=== PATIENT | female | born 1980 | race Caucasian/White ===

== ENCOUNTER → 2017-10-15 09:22 | Outpatient (CLI) | payer MEDICAID ==
--- NOTE | ~2017-10-15 | ST ---
PATIENT:MOHAN RODRIGUEZ MEDICAL RECORD: [id number] SEX: F LOCATION:[facility] ORDER #: ADMISSION DATE: 10/15/17 AGE OF PATIENT: 37 REFERRING PHYSICIAN: INTERPRETING PHYSICIAN: GRICELDA FERNANDEZ MD DATE OF SERVICE: 10/15/2017 PROCEDURE: The patient underwent a sestamibi directed and Lexiscan nuclear Cardiolite stress test. PROCEDURE IN DETAIL: The patient was brought into the nuclear lab, placed in supine position on the nuclear table. The patient had Lexiscan injected via IV normal protocol. Heart rate went from 74-126. The patient experienced flushing and mild discomfort. There were no significant EKG changes. Otherwise, protocol was completed. The nuclear injection, rest and stress were done on the same day with 8.4 mCi of sestamibi injected at 0958 hours and 26.4 mCi of sestamibi injected at 1140 hours. The gated imaging revealed no evidence of wall motion abnormalities. Calculated ejection fraction of 62%. The SPECT imaging revealed an area of anterior reversible defect that was moderate to severe in intensity and moderate in distribution in the anterior wall. IMPRESSION: The patient has a highly positive area of ischemia in the anterior wall. RECOMMENDATIONS: Diagnostic angiography. TRANSINT:[id number] Voice Confirmation ID: [id number] DOCUMENT ID: [id number] GRICELDA FERNANDEZ MD at 1001 CC: [id number] DICTATION DATE: 10/16/17 0810 JOURNEYMAN MOLDER: 10/16/17 1259 DEP CLI 10/15/17 [place] [id number] [place] [address]
[~2017-10-15 09:22] MED LIST: BAYER CHEWABLE81 MG PO; DIOVAN160 MG PO; DOXYCYCLINE HY100 M2 PO; FISH OIL 1,2001 CAP PO; LIPITOR10 MG PO; OMEPRAZOLE20 M1 PO; PLAVIX75 MG PO; PROVERA10 MG PO; TENORMIN25 MG PO; VITAMIN B-121000 MCG PO; VITAMIN D5000 UNIT PO
[2017-10-19 10:48] VITALS: BMI 41.3
== END | disposition home or self-care (01) ==
LOC: D.NM 09:22
DX: R07.9 Chest pain, unspecified (principal)

== ENCOUNTER → 2017-10-19 09:00 | Outpatient (CLI) | payer MEDICAID ==
[~2017-10-19] VITALS: Ht 165.1 cm; Wt 112.7 kg
--- NOTE | ~2017-10-19 | OP ---
PATIENT NAME: MOHAN RODRIGUEZ MEDICAL RECORD: [id number] :76 LOCATION:D[facility] ADMISSION DATE: SURGEON: DIONICIO STEVENS MD DATE OF OPERATION: 10/19/2017 PROCEDURES: 1. Left heart catheterization. 2. Selective coronary angiography. 3. Left ventriculogram. INDICATION: Chest pain compatible with angina. PROCEDURE IN DETAIL: After informed consent was obtained and after detailed explanation of risks, benefits as well as alternative therapies, the patient elected to proceed with angiogram and heart catheterization. The right radial area was prepped and draped in normal sterile fashion. The right radial artery was cannulated via modified Seldinger technique with placement of 5-Malawian sheath. All catheters exchanged through this sheath. FINDINGS: Left ventriculogram was performed in standard 30-degree KUNZ view, reveals good cardiac wall motion throughout all segments. Overall ejection fraction estimated at 60%. SELECTIVE CORONARY ANGIOGRAPHY: Left main, left anterior descending, left circumflex, and right coronary artery are all smooth-walled vessels with no angiographic evidence of coronary artery disease. OVERALL IMPRESSION: 1. No angiographic evidence of coronary artery disease. 2. Normal left heart pressures. 3. Normal left ventricular systolic function. Chest pain is noncardiac in etiology. No further cardiac workup needs to be ascertained. TRANSINT:[id number] Voice Confirmation ID: [id number] DOCUMENT ID: [id number] DIONICIO STEVENS MD at 1202 CC: [id number] DICTATION DATE: 10/19/17 1222 CLAM DREDGER: 10/19/17 1228 DEP CLI 10/19/17 [place] [id number]
--- NOTE | ~2017-10-19 | HEMODYNAMI ---
PATIENT:MOHAN RODRIGUEZ MEDICAL RECORD: [id number] : 76 LOCATION:[facility] ADMISSION DATE: 10/19/17 Generatedon:10/19/201712:25 Patient name: MOHAN RODRIGUEZ Patient #: [id number] SSN: : 1980 Date of study: 10/19/2017 Page: Of Hemodynamic Procedure Report Patient Data Patient Demographics Procedure consent was obtained First Name: MOHAN Gender: Female Last Name: MICHAEL : 1980 Middle Initial: ARJUN Age: 37 year(s) Patient #: [id number] Race: Unknown Additional ID: [id number] Contact details [address]: [address] [place] [address] State: [place] City: [place] Zip code: [address] Past Medical History Allergies Allergen Reaction Date Comments Reported Other allergy 10/19/2017 ADHESIVE TAPE, NIACIN Admission Admission Data Admission Date: 10/19/2017 Admission Time: 9:00 Height (in.): 5.6 BSA: 0.37 (m2) Height (cm.): 14.22 BMI: 5559.99 (kg/m2) Weight (lbs.): 248 Weight (kg.): 112.49 Lab Results Lab Result Date: 10/19/2017 Lab Result Time: 0:00 Biochemistry Name Units Result Min Max BUN mg/dl 10 --(-*--)-- 7 18 Creatinine mg/dl 0.7 --(*---)-- 0.6 1.3 CBC Name Units Result Min Max Hemoglobin g/dl 13.7 --(*---)-- 13.5 17.5 Procedure Procedure Types Cath Procedure Diagnostic Procedure [facility] w/Coronaries Procedure Description Procedure Date Procedure Date: 10/19/2017 Procedure Start Time: 12:14 Procedure End Time: 12:24 Procedure Staff Name Function Paxton Beckham MD Performing Physician Irena Butcher RT Monitor Jerry Burns RN Nurse Dulce Billings RT Scrub Procedure Data Cath Procedure Fluoroscopy Diagnostic fluoroscopy Total fluoroscopy Time: 2.2 time: 2.2 min min Diagnostic fluoroscopy Total fluoroscopy dose: 340 dose: 340 mGy mGy Contrast Material Contrast Material Type Amount (ml) Isovue 300 48 Entry Location Entry Primary Successful Side Size Upsize Upsize Entry Closure [place]monte ccessful Closure Location (Fr) 1 (Fr) 2 (Fr) Remarks Device Remarks Radial Right 6 Fr Mechanical artery Short Compression Estimated blood loss: 5 ml Diagnostic catheters Device Type Used For End Catheter Placement DIAGNOSTIC [place] 110cm 5 Procedure Fr catheter ([id number]) Procedure Complications No complications Procedure Medications Medication Administration Route Dosage Oxygen NC 2 l/min Lidocaine 2% added to field 20 Heparin Flush Bag added to field 2 bags (1000units/500ml NS) 0.9% NaCl I.V. 100 ml/hr Radial Cocktail I.A. 1 syringe (Verapomil 2mg/Nitro 400mcg/Heparin 1500units) Versed I.V. 2 mg Fentanyl I.V. 100 mcg Versed I.V. 1 mg Fentanyl I.V. 50 mcg Hemodynamics Rest BSA: 0.37 (m2) HGB: 13.7 (g/dl) O2 Consumption: Estimated: 38.51 (ml/min) O2 Con sumption indexed: Estimated:104.08 (ml/min/m) Heart Rate: 75 (bpm) Snapshots Pre Cath Intra NCS Post Cath Vital Signs Time Heart Resp SPO2 etCO2 NIBP (mmHg) Rhythm Pain Sedation Rate (ipm) (%) (mmHg) Status Level (bpm) 12:08:03 74 18 100 38.1 147/99(120) NSR 0 (11) 10(A) , No pain 12:12:40 80 15 98 41.8 133/104(120) NSR 0 (11) 10(A) , No pain 12:17:14 99 19 94 42.6 136/83(111) NSR 0 (11) 9(A) , No pain 12:21:48 105 17 97 43.3 130/88(100) NSR 0 (11) 10(A) , No pain Medications Time Medication Route Dose Verified Delivered Reason Notes Effectiveness by by 11:56:10 Oxygen NC 2 l/min Paxton Edwards used for Bhavani Burns RN procedure 11:56:20 Lidocaine 2% added 20ml Paxton Mikeie for local to vial Tauth MD Burns RN anesthetic field 11:56:31 Heparin Flush added 2 bags Paxton Matta used for Bag to Bhavani Beckham MD procedure (1000units/500ml field NS) 11:56:39 0.9% NaCl I.V. 100 Paxton Edwards Per ml/hr Bhavani Burns RN physician 12:11:24 Versed I.V. 2 mg Paxton Edwards for sedation Bhavani Burns RN 12:11:30 Fentanyl I.V. 100 mcg Paxton Edwards for sedation Bhavani Burns RN 12:15:12 Radial Cocktail I.A. 1 Paxton Matta for (Verapomil syringe Bhavani Beckham MD vasodilation 2mg/Nitro 400mcg/Heparin 1500units) 12:18:34 Versed I.V. 1 mg Paxton Edwards for sedation Bhavani Burns RN 12:18:38 Fentanyl I.V. 50 mcg Paxton Edwards for sedation Bhavani Burns RN Procedure Log Time Note 11:45:39 Patient Height : 5.6 inches 11:45:46 Patient Weight : 248 lbs 11:45:50 Dulce Counts RT(R) sent for patient. Start room use. 11:45:51 Time tracking: Regular hours 11:45:59 Plan of Care:Hemodynamics will remain stable., Cardiac rhythm will remain stable., Comfort level will be maintained., Respiratory function will remain adequate., Patient/ family verbilizes understanding of procedure., Procedure tolerated without complication., Recovers from procedure without complications.. 11:46:00 Signed procedure consent form obtained from patient. 11:46:29 H&P Date Dictated: 09/25/2017 Within 30 days and on chart.. 11:47:08 Patient allergic to Other allergyADHESIVE TAPE, NIACIN 11:51:58 Patient received from Pre/Post Procedure Room to CCL 1 Alert and oriented. Tansferred to table in Supine position. 11:51:59 Warm blankets applied, and aubrey hugger turned on for patient comfort. 11:52:00 Correct patient and procedure confirmed by team. 11:52:00 ECG and BP/O2 sat monitors applied to patient. 11:52:01 Vital chart was started 11:52:54 Vital chart was stopped 11:56:10 Oxygen 2 l/min NC was administered by Jerry Burns RN; used for procedure; 11:56:20 Lidocaine 2% 20ml vial added to field was administered by Jerry Burns RN; for local anesthetic; 11:56:31 Heparin Flush Bag (1000units/500ml NS) 2 bags added to field was administered by Paxton Beckham MD; used for procedure; 11:56:39 0.9% NaCl 100 ml/hr I.V. was administered by Jerry Burns RN; Per physician; 12:07:15 Vital chart was started 12:07:43 Baseline sample Acquired. 12:07:48 Rhythm: sinus tachycardia 12:07:49 Full Disclosure recording started 12:07:50 Pre-procedure instructions explained to patient. 12:07:50 Pre-op teaching completed and patient verbalized understanding. 12:07:52 Family in patients room. 12:07:53 Patient NPO since Midnight. 12:07:55 Is the patient allergic to Iodine/contrast media? No. 12:07:57 Is patient on blood thinner?Yes 12:08:01 ACC The patient was administered the following blood thiners within the last 24 hours: ACCPlavix 12:08:03 Patient diabetic? No. 12:08:08 Patient not . Patient has had hysterectomy. 12:08:11 Previous problem with sedation/anesthesia? No ? 12:08:13 Snore? Yes 12:08:14 Sleep apnea? No 12:08:15 Deviated septum? No 12:08:16 Opens mouth fully? Yes 12:08:17 Sticks out tongue? Yes 12:08:19 Airway obstruction? No ? 12:08:24 Dentures? Yes PARTIALS 12:08:29 Pre procedure: right dorsailis pedis pulse 2+ Normal; easily identifiable; not easily obliterated 12:08:32 Patient pain scale 0/10 ?. 12:08:34 Modified Brice's test Ulnar < 7 seconds 12:08:45 IV patent on arrival in left hand with 0.9% NaCl at [facility]. 12:09:17 Lab Result : BUN 10 mg/dl 12:09:17 Lab Result : Creatinine 0.7 mg/dl 12:09:17 Lab Result : Hemoglobin 13.7 g/dl 12:09:20 Lab results completed and on chart. 12:09:23 Right Radial & Right Groin area was prepped with chlora-prep and draped in sterile fashion 12:09:24 Alarms reviewed by R. N. : Sharps counted by scrub and verified by R.N. --------ALL STOP TIME OUT------ Final Timeout: patient, procedure, and site verified with staff and physician. All members of the team are in agreement. 12:: Right Radial & Right Groin site verified by team. 12:: Physical assessment completed. ASA score P 2 - A patient with mild systemic disease as per Paxton Beckham MD. 12::33 Sedation plan: IV Moderate Sedation Medication:Versed, Fentanyl 12:: Use device set Radial Dx or PCI 12:10:23 ACIST Syringe (47533) opened to sterile field. 12:10:24 Tegaderm 4 x 4 (1626W) opened to sterile field. 12:10:25 ACIST Hand Control (82930) opened to sterile field. 12:10:25 ACIST Manifold (78224) opened to sterile field. 12:10:27 Bag Decanter (2002S) opened to sterile field. 12:10:30 Medline Cath Pack ([id number]) opened to sterile field. 12:10:31 SHEATH 6FR Slender ([id number]) opened to sterile field. 12:10:31 DIAGNOSTIC WIRE .035 260cm J wire (310568) opened to sterile field. 12:11:24 Versed 2 mg I.V. was administered by Jerry Burns RN; for sedation; 12:11:30 Fentanyl 100 mcg I.V. was administered by Jerry Burns RN; for sedation; 12:13:29 Procedure started. 12:13:31 Zero performed for pressure channel P1 12:13:43 Zero performed for pressure channel P1 12:13:53 Zero performed for pressure channel P1 12:14:07 Local anesthetic to right radial artery with Lidocaine 2% by Paxton Beckham MD.INITIAL ACCESS ONLY 12:14:42 A 6 Fr Short sheath was inserted into the Right Radial artery 12:14:53 A DIAGNOSTIC [place] 110cm 5 Fr catheter ([id number]) was advanced over the wire and used for Procedure. 12:15:12 Radial Cocktail (Verapomil 2mg/Nitro 400mcg/Heparin 1500units) 1 syringe I.A. was administered by Paxton Beckham MD; for vasodilation; 12:15:21 LV gram done using KUNZ 12:15:24 Injector settings: Ml/sec: 5, Volume: 15, 12:15:57 EF : 60 % 12:16:45 RCA angiography performed. 12:17:26 Catheter removed. 12:18:03 GUIDE 6FR XBLAD 3.5 catheter ([id number]) opened to sterile field. 12:18:15 6 Fr XBLAD 3.5 guide catheter was inserted over the wire 12:18:34 Versed 1 mg I.V. was administered by Jerry Burns RN; for sedation; 12:18:38 Fentanyl 50 mcg I.V. was administered by Jerry Burns RN; for sedation; 12:19:00 LCA angiography performed. 12:19:32 Guide catheter removed. 12:19:48 TR BAND Standard ([id number]) opened to sterile field. 12:20:03 Sheath removed intact; hemostasis achieved with Mechanical Compression to the Right Radial artery. 12:20:11 Procedure ended.(Physican Out) 12:20:32 Fluoroscopy time 02.20 minutes. 12:20:36 Fluoroscopy dose: 340 mGy 12:20:36 Flurop Dose total: 340 12:20:39 Contrast amount:Isovue 300 48ml. 12:20:41 TR band inflated with 11cc of air. 12:21:38 Post procedure: right dorsailis pedis pulse 2+ Normal; easily identifiable; not easily obliterated. 12:21:41 Post-procedure physical assessment completed. ASA score P 2 - A patient with mild systemic disease as per Paxton Beckham MD. 12:21:44 Post procedure rhythm: unchanged. 12:21:46 Estimated blood loss: 5 ml 12:21:47 Post procedure instruction explained to patient.Patient verbalizes understanding. 12:21:47 Patient needs reinforcement of post procedure teaching. 12:24:26 Procedure and supply charges have been captured, reviewed, submitted and are correct. 12:24:29 Procedure Complication : No complications 12:24:30 See physician's report for complete and final results. 12:24:32 Report given to Pre/Post Procedure Room. 12:24:34 Patient transfered to Pre/Post Procedure Room with Bed. 12:24:36 Procedure ended. 12:24:36 Full Disclosure recording stopped 12::42 End room use (Document Last) 12:25:16 Vital chart was stopped Device Usage Item Name Manufacture Quantity Catalog Hospital Part Current Minimal Lot# / Number Charge Number Stock Stock Serial# Code ACIST Acist 1 74971 [id number] 974283 072328 20 Syringe Medical (36543) Systems Inc Tegaderm 4 x 3M 1 1626W 099580 474512 676146 5 4 (1626W) ACIST Hand Acist 1 36351 000457 264398 348209 5 Control Medical (32349) Systems Inc ACIST Acist 1 11184 070182 770227 468748 5 Manifold Medical (68672) Systems Inc Bag Decanter Microtek 1 2002S 649182 69193 436854 5 (2001S) Medical Inc. Medline Cath Cardinal 1 [id number] 278030 62362 245205 5 [facility] Dittit ([id number]) SHEATH 6FR Terumo 1 [id number] 639131 653040 382847 40 Slender ([id number]) DIAGNOSTIC [place] 1 208190 357400 548515 648540 30 WIRE .035 260cm J wire (769130) DIAGNOSTIC Terumo 1 40-0540 612155 777571 737210 5 [place] 110cm 5 Fr catheter (555299) GUIDE 6FR Cardinal 1 [id number] 836954 182286 358670 10 XBLAD 3.5 Health catheter ([id number]) TR BAND Terumo 1 [id number] 318344 121784 040018 40 Standard ([id number]) Signature Audit [place] Stage Time Signature Unsigned Intra-Procedure 10/19/2017 Irena Butcher 12:25:14 PM RT(R) Signatures Monitor : Irena Butcher Signature : RT Date : Time : [facility] [address] [place] [address]
[2017-10-19 10:48] VITALS: BP 122/65; Ht 165.1 cm; Wt 112.7 kg
[2017-10-19 11:14] LABS: BASOPHILS 0.2 % (0-2); EOSINOPHILS 2.9 % (0-7); HEMATOCRIT 40.3 % (36.0-48.0); HEMOGLOBIN 13.7 g/dL (12-16); IMMATURE GRANULOCYTES 0.2 % (0-5); LYMPHOCYTES 28.3 % (15-50); MCH 31.1 pg (26.0-34.0); MCV 91.4 fL (80.0-100.0); MEAN PLATELET VOLUME 10.2 fL (7.4-10.4); MONOCYTES 7.3 % (2-11); NEUTROPHILS 61.1 % (40-80); PLATELET COUNT 195 10x3/uL (130-400); RBC 4.41 10x6/uL (4.00-5.40); WBC 4.8 10x3/uL (4.8-10.8)
[2017-10-19 11:39] LABS: CALC OSMOLALITY 277 mosm/kg (275-300); CALCIUM 9.1 mg/dL (8.5-10.1); CARBON DIOXIDE 26.9 mmol/L (21.0-32.0); CHLORIDE - SERUM 105 mmol/L (98-107); CREATININE - SERUM 0.7 mg/dL (0.6-1.3); GLUCOSE 96 mg/dL (74-106); SODIUM 140 mmol/L (136-145); UREA NITROGEN 10 mg/dL (7-18); eGFR NON AFRICAN AMERICAN > 90 mL/min (90-120)
== END | disposition home or self-care (01) ==
LOC: D.CATH 09:00
PROVIDERS: Internal Medicine Interventional Cardiology
DX: R07.9 Chest pain, unspecified (principal); Z82.49 Family history of ischemic heart disease and other diseases of the circulatory system; E78.5 Hyperlipidemia, unspecified; I10 Essential (primary) hypertension; Z01.812 Encounter for preprocedural laboratory examination